=== PATIENT | male | born 1990 | race Asian ===

== ENCOUNTER 2021-10-12 07:42 | Emergency (ER) | payer OTHER ==
[~2021-10-12] VITALS: Ht 170.2 cm; Wt 159.1 kg
[2021-10-12] MEDS ORDERED: SODIUM CHLORIDE 0.9% 1,000 ML IV ONE ×2 (09:00→10:00)
[2021-10-12 09:09] LABS: BASOPHILS % (AUTO) 0.6 % (0.0-2.0); EOSINOPHILS % (AUTO) 1.3 % (1.0-6.0); HEMATOCRIT 41.1 % (41-53); HEMOGLOBIN 13.8 g/dL (13.5-17.5); LYMPHOCYTES # (AUTO) 1.1 K/uL (1.0-4.8); LYMPHOCYTES % (AUTO) 8.8 % (22.0-44.0); MEAN CORPUSCULAR HGB CONC 33.6 G/dL (31.0-37.0); MEAN CORPUSCULAR VOLUME 80 fL (80-100); MONOCYTES # (AUTO) 1.2 K/uL (0.1-1.0); MONOCYTES % (AUTO) 9.4 % (2.0-9.0); NEUTROPHILS # (AUTO) 10.3 K/uL (1.8-7.7); NEUTROPHILS % (AUTO) 79.9 % (40.0-70.0); PLATELET COUNT (AUTO) 288 K/uL (150-450); RED BLOOD CELL COUNT(AUTO) 5.11 MIL/uL (4.50-5.90); RED CELL DISTRIBUTION WIDTH 15.7 % (11.5-14.5)
[2021-10-12 09:15] LABS: CALCIUM, TOTAL 9.4 mg/dL (8.8-10.5); CREATININE 1.56 mg/dL (0.60-1.30)
[2021-10-12 09:20] LABS: ALBUMIN 3.5 g/dL (3.4-5.0); BILIRUBIN,TOTAL 1.2 mg/dL (0.1-1.0); C-REACTIVE PROTEIN QUANT 12.22 mg/dL (0.00-0.30); TOTAL PROTEIN, SERUM 8.8 g/dL (6.4-8.2)
[2021-10-12 09:29] LABS: URIC ACID 11.5 mg/dL (2.6-7.2)
[2021-10-12 09:48] LABS: COVID AG,FIA SOURCE NASOPHARYNGEAL
[2021-10-12] MEDS ORDERED: ACETAMINOPHEN 325 MG TABLET PO ONE (10:00)
[2021-10-12 11:31] LABS: ERYTHROCYTE SEDIMENTATION RATE 63 MM/HR (0-15)
[2021-10-12] MEDS ORDERED: LIDOCAINE 5% TRANSDERMAL PATCH TD ONE (12:45)
[2021-10-12 13:06] VITALS: BP 149/70
== END 2021-10-12 13:09 | disposition home or self-care (01) ==
LOC: EMS 07:47
DX: M10.9 Gout, unspecified (principal); M25.551 Pain in right hip; I10 Essential (primary) hypertension; E11.9 Type 2 diabetes mellitus without complications; Z20.822 Contact with and (suspected) exposure to COVID-19
CPT/HCPCS: 73502; 80053; 83605; 84550; 85025; 85651; 86140; 87040; 96360; 96361; 99284; 36415-L1; 36415-TC

== ENCOUNTER 2023-07-13 15:33 | Emergency (ER) | payer OTHER ==
[~2023-07-13] VITALS: Ht 175.3 cm; Wt 145.9 kg
[2023-07-13 15:37] VITALS: TEMP 98.6
[2023-07-13] MEDS ORDERED: ALLO-97 PO (15:38)
[2023-07-13] MEDS ORDERED: HYDR12.54 PO (17:11)
[2023-07-13] MEDS ORDERED: AMLO10TA55 PO (17:11)
[2023-07-13] MEDS ORDERED: LISI40TA9 PO (17:11)
[2023-07-13] MEDS ORDERED: ATOR40TA71 PO (17:11)
[2023-07-13] MEDS ORDERED: SODIUM CHLORIDE 0.9% 1,000 ML IV ONE (17:15)
[2023-07-13 17:31] LABS: BASOPHILS % (AUTO) 0.5 % (0.0-2.0); EOSINOPHILS % (AUTO) 1.1 % (1.0-6.0); HEMATOCRIT 48.3 % (41-53); HEMOGLOBIN 16.5 g/dL (13.5-17.5); LYMPHOCYTES # (AUTO) 1.9 K/uL (1.0-4.8); LYMPHOCYTES % (AUTO) 12.5 % (22.0-44.0); MEAN CORPUSCULAR HEMOGLOBIN 28.9 pg (26.0-34.0); MEAN CORPUSCULAR HGB CONC 34.2 G/dL (31.0-37.0); MEAN CORPUSCULAR VOLUME 85 fL (80-100); MONOCYTES # (AUTO) 1.3 K/uL (0.1-1.0); MONOCYTES % (AUTO) 8.5 % (2.0-9.0); NEUTROPHILS # (AUTO) 11.4 K/uL (1.8-7.7); NEUTROPHILS % (AUTO) 77.4 % (40.0-70.0); PLATELET COUNT (AUTO) 207 K/uL (150-450); RED BLOOD CELL COUNT(AUTO) 5.72 MIL/uL (4.50-5.90); RED CELL DISTRIBUTION WIDTH 13.5 % (11.5-14.5); WHITE BLOOD COUNT (AUTO) 14.7 K/uL (4.5-11.0)
[2023-07-13 17:47] LABS: ALANINE AMINOTRANSFERASE 66 U/L (12-78); ALBUMIN 3.6 g/dL (3.4-5.0); ALKALINE PHOSPHATASE 105 U/L (46-116); ANION GAP 12 mmol/L (8-16); ASPARTATE AMINOTRANSFERASE 40 U/L (15-37); CALCIUM, TOTAL 10.4 mg/dL (8.8-10.5); CARBON DIOXIDE 25 mmol/L (22-29); CHLORIDE 93 mmol/L (98-107); CREATININE 1.78 mg/dL (0.60-1.30); GLOMERULAR FILTR. RATE CALC 45 mL/min (>60); POTASSIUM 3.4 mmol/L (3.5-5.1); SODIUM SERUM 130 mmol/L (136-145); TOTAL PROTEIN, SERUM 9.3 g/dL (6.4-8.2); UREA NITROGEN, BLOOD 15 mg/dL (7-18)
[2023-07-13 17:51] LABS: GLUCOSE,RANDOM 418 mg/dL (70-110)
[2023-07-13 17:55] LABS: ACETONE,BLOOD NEGATIVE (NEGATIVE)
[2023-07-13] MEDS ORDERED: INSULIN REGULAR, HUMAN 100 UNITS/ML IVP ONE (18:45)
[2023-07-13] MEDS ORDERED: MethylPREDNISolone SOD SUCC 125 MG/2 ML VIAL IVP ONE (19:00)
[2023-07-13 19:18] LABS: APPEARANCE,URINE CLEAR (CLEAR); BILIRUBIN,URINE NEGATIVE (NEGATIVE); COLOR,URINE LIGHT YELLOW (YELLOW); GLUCOSE, URINE (UA) >=1000 mg/dL (NEGATIVE); KETONES,URINE NEGATIVE (NEGATIVE); LEUKOCYTE ESTERASE ,URINE NEGATIVE (NEGATIVE); NITRATE,URINE NEGATIVE (NEGATIVE); OCCULT BLOOD,URINE TRACE (NEGATIVE); PROTEIN,URINE 30-70 mg/dL (NEGATIVE); SPECIFIC GRAVITIY, URINE 1.021 (1.003-1.030); UROBILINOGEN,URINE <=1.0 mg/dL (<=1.0)
[2023-07-13 19:28] LABS: BACTERIA,URINE None Seen /HPF (None Seen); RBC,URINE 0-2 /HPF (0-2); WBC,URINE None Seen /HPF (0-5)
[2023-07-13 21:30] VITALS: BP 145/93; PULSE 99; RESP 18
[2023-07-13 21:32] LABS: GLUCOMETER DEV NAME(LOC) ERT.5; GLUCOSE,POINT OF CARE 339 MG/DL (70-110)
[2023-07-13] MEDS ORDERED: TRAM-559 PO (21:44)
[2023-07-13] MEDS ORDERED: COLC0.6T68 PO (21:44)
== END 2023-07-13 23:15 | disposition home or self-care (01) ==
LOC: EMS 15:33
DX: M10.9 Gout, unspecified (principal); E11.65 Type 2 diabetes mellitus with hyperglycemia; I10 Essential (primary) hypertension
CPT/HCPCS: 99284; 96374; 96361; 96375; 80053; 81001; 82009; 82962; 85025; 36415; J1815; J2930; J7030

== ENCOUNTER 2024-09-16 14:57 | Emergency (ER) | payer OTHER ==
[~2024-09-16] VITALS: Ht 180.3 cm; Wt 115.9 kg
[~2024-09-16 14:57] MED LIST: ALLO-97 PO; AMLO10TA55 PO; ATOR40TA71 PO; COLC0.6T68 PO; HYDR12.54 PO; LISI40TA9 PO; TRAM50TA5 PO
[2024-09-16] MEDS ORDERED: METF-1211 PO (15:02)
[2024-09-16 15:04] VITALS: TEMP 98.4
[2024-09-16] MEDS ORDERED: IBUP-1492 PO (15:52)
[2024-09-16] MEDS ORDERED: AMOX-457 PO (15:52)
[2024-09-16] MEDS: LIDOCAINE/PF 1% 2 ML VIAL IM ONE (15:53)
[2024-09-16] MEDS: CefTRIAXone SODIUM 1 GM/VIAL IM ONE (15:54)
[2024-09-16 16:36] VITALS: BP 137/84; PULSE 88; RESP 19; O2SAT 99
== END 2024-09-16 16:40 | disposition home or self-care (01) ==
LOC: EMS 14:57
DX: H66.91 Otitis media, unspecified, right ear (principal); E11.9 Type 2 diabetes mellitus without complications; I10 Essential (primary) hypertension; Z79.85 Long-term (current) use of injectable non-insulin antidiabetic drugs
CPT/HCPCS: 99283; 96372; J0696; J3490

== ENCOUNTER 2025-05-23 09:48 | Emergency (ER) | payer SELFPAY ==
[~2025-05-23] VITALS: Ht 177.8 cm; Wt 116.6 kg
[~2025-05-23 09:48] MED LIST changes: +AMOX-457 PO; +IBUP-1492 PO; +LISI-1024 PO; -LISI40TA9 PO; +METF-1211 PO
[2025-05-23 09:58] VITALS: TEMP 98.2
[2025-05-23] MEDS ORDERED: LOSA100T59 PO (10:02)
[2025-05-23] MEDS ORDERED: SEMA2PEN SQ (10:02)
[2025-05-23] MEDS ORDERED: METF-445 PO (10:02)
[2025-05-23] MEDS: KETOROLAC TROMETHAMINE 30 MG/ML VIAL IVP ONE (10:25)
[2025-05-23] MEDS: SODIUM CHLORIDE 0.9% 1,000 ML IV ONE ×2 (10:25→11:23)
[2025-05-23 10:27] LABS: PLATELET COUNT (AUTO) 368 K/uL (150-450); RED BLOOD CELL COUNT(AUTO) 5.93 MIL/uL (4.50-5.90); RED CELL DISTRIBUTION WIDTH 13.6 % (11.5-14.5); WHITE BLOOD COUNT (AUTO) 19.4 K/uL (4.5-11.0)
[2025-05-23 10:35] LABS: CALCIUM, TOTAL 9.2 mg/dL (8.8-10.5); CREATININE 2.63 mg/dL (0.60-1.30); GLOMERULAR FILTR. RATE CALC 28.0 mL/min (>60); GLUCOSE,RANDOM 361.0 mg/dL (70-110); SODIUM SERUM 133.0 mmol/L (136-145); UREA NITROGEN, BLOOD 20.0 mg/dL (7-18)
[2025-05-23 11:16] LABS: LACTIC ACID 2.8 mmol/L (0.4-2.0)
[2025-05-23 11:18] LABS: ALCOHOL, BLOOD (SERUM) < 3 mg/dL (0-10)
[2025-05-23 11:27] LABS: ACETONE,BLOOD NEGATIVE (NEGATIVE)
[2025-05-23] MEDS ORDERED: POTASSIUM CHLORIDE 20 MEQ ER TABLET PO ONE (11:30)
[2025-05-23 11:36] LABS: GLUCOMETER DEV NAME(LOC) ERT.7; GLUCOSE,POINT OF CARE 321 MG/DL (70-110)
[2025-05-23 12:48] LABS: APPEARANCE,URINE HAZY (CLEAR); GLUCOSE, URINE (UA) TRACE mg/dL (NEGATIVE); LEUKOCYTE ESTERASE ,URINE SMALL (NEGATIVE); NITRATE,URINE NEGATIVE (NEGATIVE); OCCULT BLOOD,URINE SMALL (NEGATIVE); PH,URINE DRUG SCREEN 5.5 (5.0-8.0); SPECIFIC GRAVITIY, URINE 1.019 (1.003-1.030)
[2025-05-23 12:51] VITALS: BP 123/91; PULSE 92; RESP 16; O2SAT 97
[2025-05-23 12:56] LABS: AMPHET/METH SCREEN,URINE NEGATIVE (NEGATIVE); BARBITURATE SCREEN, URINE NEGATIVE (NEGATIVE); CANNABINOID SCREEN,URINE NEGATIVE (NEGATIVE); COCAINE SCREEN,URINE NEGATIVE (NEGATIVE); METHADONE SCREEN, URINE NEGATIVE (NEGATIVE)
[2025-05-23 13:04] LABS: ALCOHOL, URINE DRUG SCREEN NEGATIVE (NEGATIVE)
[2025-05-23 13:10] LABS: SULFOSALICYLIC ACID,URINE 2+ (Negative)
[2025-05-23 13:10] LABS: GLUCOMETER DEV NAME(LOC) ERT.7; GLUCOSE,POINT OF CARE 236 MG/DL (70-110)
[2025-05-23 13:11] LABS: SQUAMOUS EPITHELIAL CELL,UR Few /LPF (None Seen)
[2025-05-23] MEDS ORDERED: CEPH-558 PO (13:25)
[2025-05-23] MEDS: CEPHALEXIN MONOHYDRATE 500 MG CAPSULE PO ONE (13:30)
== END 2025-05-23 13:38 | disposition left against medical advice (07) ==
LOC: EMS 09:48
DX: M10.9 Gout, unspecified (principal); M25.551 Pain in right hip; E11.65 Type 2 diabetes mellitus with hyperglycemia; I10 Essential (primary) hypertension; N17.9 Acute kidney failure, unspecified; N39.0 Urinary tract infection, site not specified; Z79.85 Long-term (current) use of injectable non-insulin antidiabetic drugs; Z79.899 Other long term (current) drug therapy
CPT/HCPCS: 99283; 96374; 80048; 81001; 82009; 82962; 83605; 85025; 87086; 36415; 80307; J1885; G0480; J7030; 81002